=== PATIENT | female | born 1945 | race Two or more races ===

== ENCOUNTER 2020-11-11 16:41 | Emergency (ER) | payer MEDICARE, BC ==
[~2020-11-11] VITALS: Ht 165.1 cm; Wt 59.0 kg
[~2020-11-11 16:41] MED LIST: ALPR0.5T8 PO; CALC-1180 PO; FISH1CAP16 PO; HYDR-3974 PO; IRBE75TA11 PO; LEVO112T2 PO; TAMS0.4C34 PO
[2020-11-11 16:57] VITALS: BP 142/70
== END 2020-11-11 17:17 | disposition home or self-care (01) ==
LOC: ER 16:43
DX: S51.812A Laceration without foreign body of left forearm, initial encounter (principal); I10 Essential (primary) hypertension; E03.9 Hypothyroidism, unspecified; Z79.899 Other long term (current) drug therapy; Z88.6 Allergy status to analgesic agent; W22.8XXA Striking against or struck by other objects, initial encounter; Y93.89 Activity, other specified; Y92.89 Other specified places as the place of occurrence of the external cause; Y99.8 Other external cause status

== ENCOUNTER 2024-05-10 21:11 | Emergency (ER) | payer MEDICARE, BC ==
[~2024-05-10] VITALS: Ht 165.1 cm; Wt 61.2 kg
[~2024-05-10 21:11] MED LIST changes: -HYDR-3974 PO
[2024-05-11] MEDS ORDERED: LIDOCAINE HCL/MPF 1% 30 ML VIAL IJ ONE (00:21)
[2024-05-11] MEDS: LIDOCAINE /MPF 1% VIAL 5 ML VIAL IJ ONE (00:42)
[2024-05-11] MEDS ORDERED: TDAP [DIPH/PERTUSSIS/TET] 0.5 ML VIAL IM ONE (00:55)
[2024-05-11] MEDS: TDAP [DIPH/PERTUSSIS/TET] 0.5 ML VIAL IM ONE (01:00)
[2024-05-11 01:01] VITALS: BP 138/72; TEMP 98.2; O2SAT 99
== END 2024-05-11 01:01 | disposition home or self-care (01) ==
LOC: ER 21:34
DX: S61.215A Laceration without foreign body of left ring finger without damage to nail, initial encounter (principal); I10 Essential (primary) hypertension; Z79.890 Hormone replacement therapy; Z79.899 Other long term (current) drug therapy; Z88.1 Allergy status to other antibiotic agents; W26.0XXA Contact with knife, initial encounter; Y93.89 Activity, other specified; Y92.89 Other specified places as the place of occurrence of the external cause; Y99.8 Other external cause status
CPT/HCPCS: 12002; 90471; 90715; 99283; A6403; J3490